=== PATIENT | male | born 1985 | race Two or more races ===

== ENCOUNTER 2023-12-27 01:51 | Emergency (ER) | payer SELFPAY ==
[~2023-12-27] VITALS: Ht 190.5 cm; Wt 119.3 kg
--- NOTE | 2023-12-27 02:20 | ED.PDOC ---
General HPI Comments 38-year-old male who comes in with chief complaint of left-sided flank pain and left upper quadrant pain. The patient states that at approximately 11:30 a.m. last night he started experiencing some left-sided flank pain as well as some bright hematuria. 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 At this time he states that the pain is a 6/10. He denies any history of this in the past. There has been no fever or chills. Chief Complaint: Urinary Time Seen by MD: 02:14 Reviewed notes: Nurses Notes, Medications, Allergies (No allergies to medications) Allergies: Coded Allergies: NO KNOWN ALLERGIES (Unverified , 12/27/23) Information Source: Patient Mode of Arrival: Ambulatory Severity: Moderate Inability to void: None Timing: Hours Duration: Since onset Prehospital treatment: None Onset: Spontaneous Symptoms: Dysuria, Hematuria History of: None Location: (L)Flank Modifying factors: None associated signs and symptoms: Abdominal Pain, Flank Pain (Left-sided flank pain), Dysuria, Hematuria Past Medical History PAST MEDICAL HISTORY: Denies Surgical History (Other): The left leg surgery Family History Family History: Family hx of DM Social History Smoker: Non-Smoker Alcohol: Denies ETOH Use Drugs: Denies Drug Use Lives In: Home Constitutional: denies: chills, diaphoresis, fatigue, fever, malaise, sweats, weakness, others EENTM: denies: blurred vision, double vision, ear bleeding, ear discharge, ear drainage, ear pain, ear ringing, eye pain, eye redness, hearing loss, mouth pain, mouth swelling, nasal discharge, nose bleeding, nose congestion, nose pain, photophobia, tearing, throat pain, throat swelling, voice changes, others Respiratory: denies: cough, hemoptysis, orthopnea, SOB at rest, shortness of breath, SOB with excertion, stridor, wheezing, others Cardiovascular: denies: chest pain, dizzy spells, diaphoresis, Dyspnea on exertion, edema, irregular heart beat, left arm pain, lightheadedness, palpitations, PND, syncope, others Gastrointestinal: reports: abdominal pain; denies: abdomen distended, blood streaked bowels, constipated, diarrhea, dysphagia, difficulty swallowing, hematemesis, melena, nausea, poor appetite, poor fluid intake, rectal bleeding, rectal pain, vomiting, others Genitourinary: reports: dysuria, flank pain (Left-sided flank pain), hematuria; denies: burning, frequency, incontinence, penile discharge, penile sore, pain, testicle pain, testicle swelling, urgency, others Neurological: denies: dizziness, fainting, headache, left sided numbness, left sided weakness, numbness, paresthesia, pre-existing deficit, right sided numbness, right sided weakness, seizure, speech problems, tingling, tremors, weakness, others Musculoskeletal: denies: back pain, gout, joint pain, joint swelling, muscle pain, muscle stiffness, neck pain, others Integumetry: denies: bruises, change in color, change in hair/nails, dryness, laceration, lesions, lumps, rash, wounds, others Allergic/Immunocompromised: denies: Difficulty Healing, Frequent Infections, Hives, Itching, others Hematologic/Lymphatic: denies: anemia, blood clots, easy bleeding, easy bruising, swollen glands, others Endocrine: denies: excessive hunger, excessive sweating, excessive thirst, excessive urination, flushing, intolerance to cold, intolerance to heat, unexplained weight gain, unexplained weight loss, others Psychiatric: denies: anxiety, bipolar disorder, depression, hopeless, panic disorder, schizophrenia, sleepless, suicidal, others Physical Exam General Appearance: Moderate Distress HEENT: Normal ENT Inspection, Pharynx Normal, TMs Normal Neck: Full Range of Motion, Non-Tender, Normal, Normal Inspection Respiratory: Chest Non-Tender, Lungs Clear, No Accessory Muscle Use, No Respiratory Distress, Normal Breath Sounds Cardiovascular: No Edema, No JVD, No Murmur, No Gallop, Normal Peripheral Pulses, Regular Rate/Rhythm Breast Exam: Deferred Gastrointestinal: No Organomegaly, Non Tender, No Pulsatile Mass, Normal Bowel Sounds, Soft Genitalia: Deferred Pelvic: Deferred Rectal: Deferred Extremities: No calf tenderness, Normal capillary refill, Normal inspection, Normal range of motion, Non-tender, No pedal edema Musculoskeletal : Apperance: Normal Neurologic: Alert, energy sales consultant II-XII nml as Tested, No Motor Deficits, Normal Affect, Normal Mood, No Sensory Deficits Cerebellar Function: Normal Reflexes: Normal Skin: Dry, Normal Color, Warm Lymphatic: No Adenopathy Was a procedure done? Was a procedure done?: No Differential Diagnosis Kidney stone (Female): N/A Kidney stone (Male): Pyelonephritis, Renal failure, Strain, Urinary obstruction, Urolithiasis X-Ray, Labs, Meds, VS Vital Signs Date Time Temp Pulse Resp B/P (MAP) Pulse Ox O2 Delivery O2 Flow Rate FiO2 12/27/23 02:08 97.8 75 16 127/86 (100) 96 Lab Test 12/27/23 02:12 12/27/23 02:00 Range/Units White Blood Count 9.1 4.4-10.8 10^3/uL Red Blood Count 5.03 4.5-5.90 10^6/uL Hemoglobin 15.5 13.5-17.5 g/dL Hematocrit 44.5 41.0-53.0 % Mean Corpuscular Volume 88.4 80.0-100.0 fL Mean Corpuscular Hemoglobin 30.7 28.0-32.0 pg Mean Corpuscular Hemoglobin Concent 34.7 32.0-36.0 g/dL Red Cell Distribution Width 13.1 11.8-14.3 % Platelet Count 301 140-450 10^3/uL Mean Platelet Volume 7.6 6.9-10.8 fL Neutrophils (%) (Auto) 67.9 37.0-80.0 % Lymphocytes (%) (Auto) 24.2 10.0-50.0 % Monocytes (%) (Auto) 6.3 0.0-12.0 % Eosinophils (%) (Auto) 0.9 0.0-7.0 % Basophils (%) (Auto) 0.7 0.0-2.0 % Neutrophils # (Auto) 6.1 1.6-8.6 10 ^3/uL Lymphocytes # (Auto) 2.2 0.4-5.4 10 ^3/uL Monocytes # (Auto) 0.6 0-1.3 10 ^3/uL Eosinophils # (Auto) 0.1 0-0.8 10 ^3/uL Basophils # (Auto) 0.1 0-0.2 10 ^3/uL Nucleated Red Blood Cells 0.1 % Prothrombin Time 10.5 9.3-11.8 sec Prothrombin Time INR 0.99 0.9-1.15 Activated Partial Thromboplast Time 27.6 24.5-34.5 SEC Sodium Level 139 136-145 mmol/L Potassium Level 4.9 3.5-5.1 mmol/L Chloride Level 104 98-107 mmol/L Carbon Dioxide Level 29 20-31 mmol/L Anion Gap 6 5-15 Blood Urea Nitrogen 12 9-23 mg/dL Creatinine 1.12 0.700-1.30 mg/dL Glomerular Filtration Rate Calc 86 >90 mL/min BUN/Creatinine Ratio 10.7 10.0-20.0 Serum Glucose 112 H 74-106 mg/dL Calcium Level 10.2 8.7-10.4 mg/dL Urine Color Light-brown Yellow Urine Clarity Turbid H Clear Urine pH 5.5 5.0-9.0 Urine Specific [place] 1.017 1.001-1.035 Urine Protein Trace H Negative Urine Ketones Negative Negative Urine Blood 3+ H Negative /uL Urine Nitrite Negative Negative Urine Bilirubin Negative Negative Urine Urobilinogen Normal Negative mg/dL Urine Leukocyte Esterase 2+ Negative /uL Urine RBC 903 0 - 3 /hpf Urine WBC 63 0 - 3 /hpf Urine Squamous Epithelial Cells None seen <5 /hpf Urine Bacteria None seen None Seen /hpf Urine Glucose Normal Normal mg/dL Current Medications Medications (Trade) Dose Ordered Sig/Mateo Route Start Time Stop Time Status Last Admin Sodium Chloride 1,000 ml @ 1,000 mls/hr Q1H ONCE IVB 12/27/23 02:30 12/27/23 03:29 DC 12/27/23 04:03 Ketorolac Tromethamine (Toradol Injection) 30 mg ONCE ONCE IV 12/27/23 02:30 12/27/23 02:31 DC 12/27/23 04:09 Ceftriaxone Sodium 50 ml @ 100 mls/hr ONCE ONCE IV 12/27/23 04:15 12/27/23 04:44 12/27/23 04:09 IV Hep-Lock is being established The patient was being given Toradol [address] scan of the abdomen and pelvis shows: IMPRESSION: 1. No abdominal mass or adenopathy. 2. No ascites. 3. No free air or inflammatory changes. 4. No renal calculi or hydronephrosis. The patient was bolused with normal saline at 1 L The CBC and chemistry panel are within normal limits The patient is being discharged after receiving Rocephin 1 g IV piggyback The patient will be placed on Cipro The patient will follow up with the primary care doctor Images Reviewed?: Images reviewed and evaluated by me Time of 1ST Reevaluation: 02:22 Reevaluation 1ST: Unchanged Patient Education/Counseling: Diagnosis, Treatment, Prognosis, Need For Follow Up Family Education/Counseling: No Family Present Departure 1 Departure Time of Disposition: 04:24 Impression: Primary Impression: UTI (urinary tract infection) Qualified Codes: N30.01 - Acute cystitis with hematuria Disposition: 01 HOME / SELF CARE / HOMELESS Condition: Fair Discharged With: Self Critical Care Note Critical Care Time?: No Stability Stability form required: No Heart Score Heart Score: Heart Score Response (Comments) Value History N/A 0 EKG N/A 0 Age N/A 0 Risk Factors N/A 0 Troponin N/A 0 Total 0 I personally scribed for HIGINIO AUGUST MD ([email or web address]) on 12/27/23 at 02:47. Electronically submitted by Vivek Ortega ([email or web address]). HIGINIO AUGUST MD Dec 27, 2023 02:20
[2023-12-27 02:37] LABS: Basophils # (auto) 0.1 10 ^3/uL (0-0.2); Basophils % (auto) 0.7 % (0.0-2.0); Eosinophils # (auto) 0.1 10 ^3/uL (0-0.8); Eosinophils % (auto) 0.9 % (0.0-7.0); Hematocrit 44.5 % (41.0-53.0); Hemoglobin 15.5 g/dL (13.5-17.5); Lymphocytes # (auto) 2.2 10 ^3/uL (0.4-5.4); Lymphocytes % (auto) 24.2 % (10.0-50.0); Mean Corpuscular Hemoglobin 30.7 pg (28.0-32.0); Mean Corpuscular Hgb Conc. 34.7 g/dL (32.0-36.0); Mean Corpuscular Volume 88.4 fL (80.0-100.0); Monocytes # (auto) 0.6 10 ^3/uL (0-1.3); Monocytes % (auto) 6.3 % (0.0-12.0); Neutrophils # (auto) 6.1 10 ^3/uL (1.6-8.6); Neutrophils % (auto) 67.9 % (37.0-80.0); Nucleated Red Blood Cells % 0.1 %; Platelet Count (auto) 301 10^3/uL (140-450); Red Blood Cells 5.03 10^6/uL (4.5-5.90); Red Cell Distribution Width 13.1 % (11.8-14.3); White Blood Cell 9.1 10^3/uL (4.4-10.8)
[2023-12-27 02:42] LABS: Chloride 104 mmol/L (98-107); Potassium 4.9 mmol/L (3.5-5.1); Sodium 139 mmol/L (136-145)
[2023-12-27 02:43] LABS: Anion Gap 6 (5-15); Calcium 10.2 mg/dL (8.7-10.4); Carbon Dioxide 29 mmol/L (20-31)
[2023-12-27 02:48] LABS: BUN/Creatinine Ratio 10.7 (10.0-20.0); Blood Urea Nitrogen 12 mg/dL (9-23); Glucose 112 mg/dL (74-106)
[2023-12-27 02:52] LABS: INR 0.99 (0.9-1.15); Partial Thromboplastin Time 27.6 SEC (24.5-34.5); Prothrombin Time 10.5 sec (9.3-11.8)
--- NOTE | 2023-12-27 03:07 | DVH ---
Examination: ABPL CLINICAL INDICATION: hematuria COMPARISON: None. CONTRAST USED: None. TECHNIQUE: A plain CT study of the abdomen and pelvis is performed. The examination was performed with 5 mm thin slices. Multiplanar reconstructions were obtained. CT scan done according to ALARA ( As Low As Reasonably Achievable). FINDINGS: CT ABDOMEN: Lung base: The evaluation of lung bases demonstrates no focal infiltrates or pleural effusion. Unenhanced Liver: The liver is normal in size. There is no intrahepatic biliary radicle dilatation. Gallbladder: The gallbladder is normal and reveals no intrinsic abnormality. The common bile duct i s not dilated. Unenhanced Pancreas: The pancreas is normal in size and shape. No focal lesion is seen within. The peripancreatic fat-planes are normal. Spleen: The spleen is normal in size and does not show any focal abnormality. Retroperitoneum: Both adrenal glands are normal in size and morphology in this unenhanced CT scan. There is no significant retroperitoneal lymphadenopathy. The kidneys are normal in size with no hydronephrosis or renal calculi. Vessels: Aorta, IVC and the mesenteric vessels cannot be commented in this unenhanced CT scan. Stomach and bowel: The bowel loops are unremarkable. There is no ascites. Skeletal system: Degenerative changes are seen involving the spine in the form of marginal osteophyt es. CT PELVIS: Appendix: The appendix is unremarkable in appearance Colon: The ascending, transverse, descending, sigmoid colon and rectum are unremarkable. Bladder: The urinary bladder is unremarkable. Small umbilical hernia is seen containing fat. The prostate reveals no abnormality. No abnormal fluid collection is seen. No pelvic lymphadenopathy is identified. IMPRESSION: 1. No abdominal mass or adenopathy. 2. No ascites. 3. No free air or inflammatory changes. 4. No renal calculi or hydronephrosis. 5. Additional chronic and/or ancillary findings as detailed above. 6. Suggest clinical correlation and follow-up as clinically deemed necessary. Electronically Signed 12/27/2023 02:59 Doris Bey
[2023-12-27 03:24] LABS: Urine Bacteria None Seen /hpf (None Seen)
[2023-12-27 03:50] LABS: Urine Blood 3+ /uL (Negative); Urine Clarity Turbid (Clear); Urine Color Light-Brown (Yellow); Urine Protein, UAD TRACE (Negative); Urine Specific Gravity 1.017 (1.001-1.035); Urine Urobilinogen Normal (Negative); Urine WBC 63 /hpf (0 - 3); Urine pH 5.5 (5.0-9.0)
[2023-12-27] MEDS: SODIUM CHLORIDE 0.9% 1,000 ML IVB ONE (04:03)
[2023-12-27] MEDS: KETOROLAC TROMETH 30 MG/ML 1ML VIAL IV ONE (04:09)
[2023-12-27] MEDS: cefTRIAXone 1GM/50ML D5W 50 ML IV ONE (04:09)
[2023-12-27 04:57] VITALS: BP 110/67; PULSE 64; TEMP 98.3
[2023-12-27 05:06] VITALS: RESP 18; O2SAT 98
== END 2023-12-27 05:10 | disposition home or self-care (01) ==
LOC: ER 01:51
DX: N39.0 Urinary tract infection, site not specified (principal); Z98.890 Other specified postprocedural states
CPT/HCPCS: 36415; 74176; 80048; 81001; 85025; 85610; 85730; 96365; 96375; 99285; J0696; J1885; J7030